=== PATIENT | female | born 1995 | race Two or more races ===

== ENCOUNTER → 2017-02-18 | Outpatient (REF) | payer OTHER | LOC: M SFHCPLAZ 16:53 | PROVIDERS: ATTEND Family Medicine | DX: Z12.4 Encounter for screening for malignant neoplasm of cervix (principal) ==

== ENCOUNTER → 2017-06-17 | Outpatient (CLI) | payer OTHER ==
--- NOTE | 2017-06-17 20:14 | REP ---
LEFT BREAST ULTRASOUND: 06/17/2017. Clinical history: Left breast palpable lump noon position. She states for about a year. There is a positive family history for paternal grandmother with breast carcinoma. She states it is increased in size. Findings: Heterogeneous dense echogenic parenchyma noted in the region at the noon position of the breast. However, at the area of palpable finding, there is a hypoechoic lobulated lesion with irregular margins 2.8 x 2.2 x 1.8 cm. It shows some through transmission but not characteristic appearance for fibroadenoma. There is no definite color flow within it. Nearby in a dense fibrous band is another hypoechoic area, but less hypoechoic and better defined and without lobulated margins. It measures 13 x 10 x 9 mm. Impression: 1. BIRADS/ACR category 4 suspicious left breast ultrasound. There is a solid appearing mass with hypoechoic characteristics. It does not have typical findings associated with fibroadenoma. An atypical fibroadenoma, hematoma or other mass are the differential considerations. The fact that it is enlarging, has irregular lobulated contours and poor through transmission warrants consideration for percutaneous ultrasound guided needle biopsy. The other finding in the nearby soft tissues is likely normal parenchyma. Signed by Mani Beasley MD 06/17/2017 10:33 P
== END ==
LOC: M RAD 11:25
PROVIDERS: ATTEND Family Medicine
DX: N63 Unspecified lump in breast (principal)

== ENCOUNTER → 2017-10-17 | Outpatient (CLI) | payer OTHER ==
--- NOTE | 2017-10-17 19:34 | REP ---
Left breast ultrasound: 10/17/2017: Comparison: 06/17/2017. Clinical history: Unilateral lump in left breast. Visualized sonographically in June. For follow-up. Findings sonographic evaluation again shows heterogeneous dense echogenic breast parenchyma. Again noted in the retroareolar zone noon position is a 2.5 x 2.8 x 1.8 cm lobulated appearing hypoechoic mass. This does not have typical features of a fibroadenoma corresponds to the palpable finding. The measurements are similar in length and height. The width is 3 mm greater. There is some through transmission but it is not strong. Does not have cystic characteristics. I do not see any definite color flow within it. The previous study showed a nearby linear hypoechoic fibrous band of tissue which is not visible on today's study. There are no dilated ducts, cyst, or masses or architectural distortion. Impression: 1. BIRADS ACR category 4 suspicious left breast ultrasound biopsy should be considered. A solid appearing mass with hypoechoic lobulated appearance, two of the three measurements are the same, one is larger than on the previous study. This is not typical for fibroadenoma but the appearance could be an atypical fibroadenoma. I doubt hematoma as there is no significant decrease in size. Other masses are unusual in this age group, but because of its atypical appearance, ultrasound-guided needle biopsy is still recommended. BI-RADS/ACR category 4 mammogram. Suspicious abnormality - biopsy should be considered. Usually requires biopsy. Signed by Mani Beasley MD 10/18/2017 08:22 P
== END ==
LOC: M RAD 15:11
PROVIDERS: ATTEND Surgery
DX: N63.0 Unspecified lump in unspecified breast (principal)

== ENCOUNTER → 2017-11-09 | Outpatient (CLI) | payer OTHER ==
[~2017-11-09] MED LIST: LIDOCAINE 1% MDV 20ML VIAL As Ordered ONE
--- NOTE | 2017-11-10 09:33 | REP ---
LEFT BREAST BIOPSY WITH ULTRASOUND GUIDANCE: The procedure was performed by CLARISSA Conroy under the direct supervision of Dr. Bates. The procedure along with its risks, benefits and complications were discussed with the patient prior to the examination. Informed consent was obtained both verbally and written. The patient was identified in the ultrasound suite and placed in the supine position. The left breast was interrogated with ultrasound. An appropriate site was chosen for needle entry and this area was marked, prepped and draped in the usual sterile fashion. A procedural time-out was performed to insure that the correct patient site and procedure were being performed. Local infiltrative anesthesia was achieved using 20 mL of 1% Xylocaine. A small skin incision was made and a 13-gauge Mammotome biopsy device was advanced to the area of interest. A total of 6 core biopsy specimens were obtained with ultrasonographic imaging to document each pass. The specimens were placed in formalin and sent to pathology for further analysis. Results pending. Following the procedure, the wound was cleansed and compressed. Steri-Stripes and sterile gauze were applied and the patient was given postbiopsy instructions. The patient tolerated the procedure well and had no immediate complications. IMPRESSION: Uncomplicated ultrasound-guided biopsy of the left breast. Pathology pending. Reviewed by CLARISSA Duarte 11/10/2017 11:11 AEdited and Signed by Isreal Bates MD 11/10/2017 02:30 P
== END ==
LOC: M RADPRO 08:50
PROVIDERS: ATTEND Surgery
DX: D24.2 Benign neoplasm of left breast (principal)

== ENCOUNTER → 2018-03-03 | Outpatient (REF) | payer OTHER | LOC: M SFHCPLAZ 07:34 | DX: Z12.4 Encounter for screening for malignant neoplasm of cervix (principal); R87.612 Low grade squamous intraepithelial lesion on cytologic smear of cervix (LGSIL) | CPT/HCPCS: 88142 ==

== ENCOUNTER → 2018-08-30 | Outpatient (CLI) | payer OTHER ==
[2018-08-30 17:35] LABS: ANION GAP 7 MEQ/L (8-16); BLOOD UREA NITROGEN 11 MG/DL (7-18); CALCIUM LEVEL 8.7 MG/DL (8.5-10.1); CARBON DIOXIDE LEVEL 26 MEQ/L (21-32); CHLORIDE LEVEL 108 MEQ/L (98-107); CREATININE FOR GFR 0.65 MG/DL (0.55-1.30); FREE T4 0.84 NG/DL (0.76-1.46); GLOMERULAR FILTRATION RATE > 60.0 (>60); GLUCOSE, FASTING 102 MG/DL (70-100); POTASSIUM SERUM 3.9 MEQ/L (3.5-5.1); SODIUM LEVEL 141 MEQ/L (136-145)
[2018-08-30 17:36] LABS: HEMATOCRIT 37.4 % (36.0-47.0); HEMOGLOBIN 12.6 g/dl (12.0-15.5); MEAN CORPUSCULAR HEMOGLOBIN 29.2 pg (27.0-33.0); MEAN CORPUSCULAR HGB CONC 33.7 g/dl (32.0-36.5); MEAN CORPUSCULAR VOLUME 86.6 fl (80.0-96.0); PLATELET COUNT, AUTOMATED 252 10^3/uL (150-450); RED BLOOD COUNT 4.32 10^6/uL (4.00-5.40); RED CELL DISTRIBUTION WIDTH 11.9 % (11.5-14.5); WHITE BLOOD COUNT 6.1 10^3/uL (4.0-10.0)
[2018-08-30 18:27] LABS: ESTIMATED AVERAGE GLUCOSE 111 MG/DL (60-110); HEMOGLOBIN A1c 5.5 %
== END ==
LOC: M LAB 16:46
DX: L65.8 Other specified nonscarring hair loss (principal)
CPT/HCPCS: 84443

== ENCOUNTER → 2018-12-21 | Outpatient (CLI) | payer OTHER ==
--- NOTE | 2018-12-21 18:11 | REP ---
Focused left breast sonography: History: Follow-up ultrasound of the lump in the left breast. The patient is status post ultrasound-guided needle biopsy October 17, 2017 histologic result was fibroadenoma for this lesion at 12 o'clock. Comparison sonography June 17, 2017. Findings: Sonographic scanning of the lump and 12 o'clock again demonstrates a 2.6 x 2.6 x 2.0 cm macrolobulated hypoechoic mass felt to be unchanged from the as sonographic study done June 17, 2017. This was a lesion that was biopsied and called fibroadenoma. Impression: Stable BIRADS category II benign left breast sonographic findings. Electronically Signed by Isreal Bates MD 12/21/2018 10:29 P
== END ==
LOC: M RAD 14:56
PROVIDERS: ATTEND Surgery
DX: N63.0 Unspecified lump in unspecified breast (principal)

== ENCOUNTER → 2019-02-22 | Outpatient (REF) | payer OTHER ==
[2019-02-24 14:43] LABS: HPV HYBRID CAPTURE II Negative (Negative)
== END ==
LOC: M SFHCPLAZ 10:08
PROVIDERS: ATTEND Family Medicine
DX: Z12.4 Encounter for screening for malignant neoplasm of cervix (principal); Z87.898 Personal history of other specified conditions; R87.612 Low grade squamous intraepithelial lesion on cytologic smear of cervix (LGSIL)

== ENCOUNTER → 2019-03-26 | Outpatient (REF) | payer OTHER ==
[~2019-03-26] MED LIST changes: +CETI-36 PO; -LIDOCAINE 1% MDV 20ML VIAL As Ordered ONE; +LOW-1TAB2 PO; +PROAAER10 INH
== END ==
LOC: M SFHCWAGY 15:27
PROVIDERS: ATTEND Nurse Practitioner Women's Health
DX: R87.612 Low grade squamous intraepithelial lesion on cytologic smear of cervix (LGSIL) (principal)

== ENCOUNTER 2019-04-03 10:56 | Day surgery (SDC) | payer OTHER ==
[~2019-04-03] VITALS: Ht 160 cm; Wt 66.6 kg
[~2019-04-03 10:56] MED LIST changes: +LR 1,000 ML IV ONE; +MIDAZOLAM INJ 2 MG/2 ML VIAL (J2250) As Ordered ONE; +fentaNYL 250 MCG/5 ML INJECTION (J3010) As Ordered ONE
[2019-04-03 11:22] LABS: URINE PREG TEST NEGATIVE (NEGATIVE)
[2019-04-03] MEDS ORDERED: BUPIVACAINE/EPIN 0.25% 30 ML VIAL As Ordered ONE (12:40)
[2019-04-03] MEDS ORDERED: dexameTHASONE 4 MG/ML 1ML VIAL (J1100) As Ordered ONE (12:52)
[2019-04-03] MEDS ORDERED: ONDANSETRON 4MG/2ML VIAL (J2405) As Ordered ONE (12:53)
[2019-04-03] MEDS ORDERED: PROPOFOL 200 MG/20 ML VIAL As Ordered ONE (12:54)
[2019-04-03] MEDS ORDERED: ACETAMINOPHEN 1000MG 100ML IV BTL (OFIRMEV) (J0131 PER 10MG) As Ordered ONE (12:55)
[2019-04-03] MEDS ORDERED: LIDOCAINE 2% INJ 100 MG/5 ML SDV (FOR ANES.) As Ordered ONE (12:57)
[2019-04-03] MEDS ORDERED: KETOROLAC 60 MG/2 ML VIAL (J1885) As Ordered ONE (12:59)
--- NOTE | 2019-04-03 13:54 | RO ---
DATE OF PROCEDURE: 04/03/2019 PREOPERATIVE DIAGNOSIS: Left breast mass. POSTOPERATIVE DIAGNOSIS: Left breast mass. PROCEDURE: Left breast biopsy (lumpectomy). SURGEON: Dr. Иван Pham ASSOCIATE PROFESSOR OF CHEMISTRY: ANESTHESIA: General. ESTIMATED BLOOD LOSS: Minimal. FLUIDS: Crystalloid. BRIEF PROCEDURE SUMMARY: The patient was brought to the operating room and was given general anesthesia. After adequate anesthesia and preoperative identification of the lesion was performed, the patient was prepped and draped in the usual sterile fashion. Next, a curvilinear line above the nipple-areolar complex area was made with a skin knife. Electrocautery was used cut through dermis and underlying subcutaneous tissue through a palpable mass in the breast. It was a relatively deep lesion. Once further dissection was performed through the skin and subcutaneous tissue, it was actually in the deep breast tissue that this was, and it reached all the way down to the pectoralis major muscle. In any case, this was removed in its entirety using a combination of blunt and sharp dissection as well as electrocautery and sent to pathology. The breast tissue was loosely approximated in this area with #3-0 Vicryl, #3-0 Vicryl was used to approximate dermis and #4-0 Vicryl subcuticular was used to approximate the skin. Steri-Strips and a dry sterile dressing was applied. Local Marcaine with epinephrine was infiltrated into the skin and subcutaneous tissue. The patient was awakened, extubated and brought to the recovery room awake, alert and hemodynamically stable. Sponge and needle counts were correct times two.
[2019-04-03] MEDS ORDERED: NORCO, ANEXSIA 5/325MG TABLET (HYDROcodone/ACETAMINOPHEN) PO PRN (14:00)
[2019-04-03] MEDS ORDERED: METOCLOPRAMIDE INJ 10MG/2ML VIAL (J2765) IV PRN (14:00)
[2019-04-03] MEDS ORDERED: ONDANSETRON 4MG/2ML VIAL (J2405) IV PRN (14:00)
[2019-04-03] MEDS ORDERED: PERCOCET 5MG/325MG TAB PO PRN (14:00)
[2019-04-03] MEDS ORDERED: fentaNYL 100 MCG/2 ML INJECTION (J3010) IV PRN (14:00)
[2019-04-03] MEDS ORDERED: LR 1,000 ML IV SCH ×2 (14:00)
[2019-04-03 15:10] VITALS: BP 141/86
[2019-04-03] MEDS ORDERED: KETOROLAC 30 MG/ML VIAL (J1885) IV SCH (20:00)
== END 2019-04-03 15:19 | disposition home or self-care (01) ==
LOC: M SDC 10:56
PROVIDERS: ATTEND Surgery
DX: D24.2 Benign neoplasm of left breast (principal); Z79.51 Long term (current) use of inhaled steroids; Z79.899 Other long term (current) drug therapy; M46.1 Sacroiliitis, not elsewhere classified
CPT/HCPCS: 19120; 84703; 88305; J0131; J1100; J1885; J2250; J2405; J3010

== ENCOUNTER → 2020-03-17 | Outpatient (REF) | payer OTHER ==
[~2020-03-17] MED LIST changes: -LR 1,000 ML IV ONE; -MIDAZOLAM INJ 2 MG/2 ML VIAL (J2250) As Ordered ONE; -fentaNYL 250 MCG/5 ML INJECTION (J3010) As Ordered ONE
== END ==
LOC: M SFHCPLAZ 13:32
PROVIDERS: ATTEND Family Medicine
DX: Z87.42 Personal history of other diseases of the female genital tract (principal); N87.0 Mild cervical dysplasia

== ENCOUNTER → 2020-04-15 | Outpatient (CLI) | payer OTHER ==
--- NOTE | 2020-04-15 18:51 | REP ---
Clinical: Pelvic pain . Technique: Transabdominal pelvic ultrasound followed with color evaluation. Findings: Bladder is unremarkable and measures 9.9 x 5.0 x 9.5 cm . Normal anteverted uterus measures 8.3 x 2.9 x 3.7 cm . The endometrial complex measures 2.2 mm thickness. No discrete uterine or endometrial abnormalities are appreciated. Bilateral ovaries are normal in appearance and vascularity without evidence for torsion. Right ovary measures 3.2 x 1.5 x 2.6 cm ; Left ovary measures 3.5 x 2.0 x 1.6 cm including small follicle. No pelvic fluid or adnexal mass lesion . Impression: 1. Normal pelvic ultrasound
== END ==
LOC: M WHC 15:24
PROVIDERS: ATTEND Nurse Practitioner Women's Health
DX: R10.2 Pelvic and perineal pain (principal)

== ENCOUNTER → 2021-03-19 | Outpatient (REF) | payer BC, OTHER | LOC: M SFHCPLAZ 17:09 | PROVIDERS: ATTEND Family Medicine | DX: Z12.4 Encounter for screening for malignant neoplasm of cervix (principal) ==

== ENCOUNTER → 2021-07-29 | Outpatient (CLI) | payer BC ==
[2021-07-29 09:43] LABS: FREE T4 0.76 NG/DL (0.76-1.46)
[2021-07-29 09:44] LABS: HCG, SERUM QUALITATIVE NEGATIVE (NEGATIVE); PROLACTIN 7.6 NG/ML
[2021-07-29 09:46] LABS: ESTRADIOL 60.5 PG/ML; FOLLICLE STIMULATING HORMONE 8.3 mIU/mL; LUTEINIZING HORMONE 18.6 mIU/mL
[2021-07-30 17:07] LABS: TESTOSTERONE FREE (DIRECT) 6.5 pg/mL (0.0-4.2)
== END ==
LOC: M LAB 08:32
PROVIDERS: ATTEND Family Medicine
DX: N91.4 Secondary oligomenorrhea (principal)

== ENCOUNTER → 2021-09-11 | Outpatient (CLI) | payer BC ==
[2021-09-11 14:42] LABS: HCG, SERUM QUALITATIVE POSITIVE (NEGATIVE)
== END ==
LOC: M LAB 12:35
PROVIDERS: ATTEND Family Medicine
DX: N91.2 Amenorrhea, unspecified (principal)

== ENCOUNTER → 2021-10-01 | Outpatient (CLI) | payer BC ==
[2021-10-01 17:08] LABS: BASO # 0.1 10^3/uL (0.0-0.2); BASO % 0.4 % (0.0-1.0); EOS # 0.1 10^3/uL (0.0-0.5); EOS % 0.3 % (0.0-3.0); HEMATOCRIT 39.7 % (36.0-47.0); HEMOGLOBIN 13.6 g/dl (12.0-15.5); LYMPH # 2.6 10^3/uL (1.5-5.0); LYMPH % 17.1 % (24.0-44.0); MEAN CORPUSCULAR HEMOGLOBIN 30.6 pg (27.0-33.0); MEAN CORPUSCULAR HGB CONC 34.3 g/dl (32.0-36.5); MEAN CORPUSCULAR VOLUME 89.4 fl (80.0-96.0); MONO % 6.8 % (2.0-8.0); NEUTROPHILS % 72.9 % (36.0-66.0); PLATELET COUNT, AUTOMATED 341 10^3/uL (150-450); RED BLOOD COUNT 4.44 10^6/uL (4.00-5.40); WHITE BLOOD COUNT 15.1 10^3/uL (4.0-10.0)
[2021-10-01 17:21] LABS: ALT/SGPT 23 U/L (12-78); BILIRUBIN,TOTAL 0.2 MG/DL (0.2-1.0); CREATININE FOR GFR 0.58 MG/DL (0.55-1.30); GLOMERULAR FILTRATION RATE > 60.0 (>60); LDH LACTATE DEHYDROGENASE 152 U/L (84-246); URIC ACID 3.4 MG/DL (2.6-6.0)
[2021-10-01 17:23] LABS: TOTAL PROTEIN,RANDOM URINE 9.1 MG/DL (0.0-12.0)
[2021-10-01 18:11] LABS: HEPATITIS C VIRUS ABY INDEX 0.1 INDEX (<0.8); HIV 1&2 SCREEN CENTAUR NEGATIVE (NEGATIVE)
[2021-10-01 19:19] LABS: GC DNA AMPLIFICATION NEGATIVE (NEGATIVE)
== END ==
LOC: M PLALAB 15:46
PROVIDERS: ATTEND Advanced Practice Midwife
DX: Z36.89 Encounter for other specified antenatal screening (principal); Z3A.08 8 weeks gestation of pregnancy

== ENCOUNTER → 2021-12-24 | Outpatient (CLI) | payer BC | LOC: M WHC 11:45 | PROVIDERS: ATTEND Obstetrics & Gynecology | DX: O10.911 Unspecified pre-existing hypertension complicating pregnancy, first trimester (principal) ==

== ENCOUNTER → 2022-02-12 | Outpatient (CLI) | payer BC ==
[2022-02-12 11:00] LABS: HEMATOCRIT 31.5 % (36.0-47.0); HEMOGLOBIN 10.8 g/dl (12.0-15.5); MEAN CORPUSCULAR HEMOGLOBIN 30.2 pg (27.0-33.0); MEAN CORPUSCULAR HGB CONC 34.3 g/dl (32.0-36.5); PLATELET COUNT, AUTOMATED 233 10^3/uL (150-450); RED BLOOD COUNT 3.58 10^6/uL (4.00-5.40)
== END ==
LOC: M PLALAB 07:54
PROVIDERS: ATTEND Advanced Practice Midwife
DX: O10.012 Pre-existing essential hypertension complicating pregnancy, second trimester (principal); Z3A.00 Weeks of gestation of pregnancy not specified

== ENCOUNTER → 2022-02-25 | Outpatient (CLI) | payer BC | LOC: M WHC 08:22 | PROVIDERS: ATTEND Obstetrics & Gynecology | DX: N63.20 Unspecified lump in the left breast, unspecified quadrant (principal) ==

== ENCOUNTER → 2022-03-18 | Outpatient (CLI) | payer BC | LOC: M WHC 11:24 | PROVIDERS: ATTEND Advanced Practice Midwife | DX: O10.013 Pre-existing essential hypertension complicating pregnancy, third trimester (principal) ==

== ENCOUNTER → 2022-04-06 | Outpatient (REF) | payer BC | LOC: M PLALAB 08:09 | PROVIDERS: ATTEND Specialist | DX: Z34.03 Encounter for supervision of normal first pregnancy, third trimester (principal) ==

== ENCOUNTER → 2022-04-14 | Outpatient (CLI) | payer BC | LOC: M WHC 09:54 | PROVIDERS: ATTEND Advanced Practice Midwife | DX: O10.013 Pre-existing essential hypertension complicating pregnancy, third trimester (principal) ==

== ENCOUNTER 2022-04-26 11:50 | Inpatient (IN) | payer BC ==
[~2022-04-26] VITALS: Ht 160 cm; Wt 87.9 kg
[2022-04-26] VITALS (16 sets, daily range): BP systolic 134–186; BP diastolic 75–111
[2022-04-26] MEDS ORDERED: CARBOPROST TROMETHAMINE 250 MCG/ML AMP IM PRN (12:25)
[2022-04-26] MEDS ORDERED: OXYTOCIN DRIP 30 UNITS in IV 1 EA IV PRN (12:25)
[2022-04-26] MEDS ORDERED: TRANEXAMIC ACID INJection 1,000 MG in NS 100 ML IV PRN (12:25)
[2022-04-26] MEDS ORDERED: LIDOCAINE 1% MDV 20ML VIAL INFIL PRN (12:25)
[2022-04-26] MEDS ORDERED: RA A500C4 PO (12:36)
[2022-04-26] MEDS ORDERED: ECOT81TA5 PO (12:36)
[2022-04-26] MEDS ORDERED: LABE100T71 PO (12:36)
[2022-04-26] MEDS ORDERED: PRENTAB9 PO (12:36)
[2022-04-26] MEDS ORDERED: HOME MED LIST COMPLETE! XX SCH (12:40)
[2022-04-26 13:32] LABS: HEMATOCRIT 31.1 % (36.0-47.0); HEMOGLOBIN 10.2 g/dl (12.0-15.5); MEAN CORPUSCULAR HEMOGLOBIN 27.3 pg (27.0-33.0); MEAN CORPUSCULAR HGB CONC 32.8 g/dl (32.0-36.5); MEAN CORPUSCULAR VOLUME 83.4 fl (80.0-96.0); PLATELET COUNT, AUTOMATED 179 10^3/uL (150-450); RED BLOOD COUNT 3.73 10^6/uL (4.00-5.40); WHITE BLOOD COUNT 7.5 10^3/uL (4.0-10.0)
[2022-04-26 13:53] LABS: ALT/SGPT 17 U/L (12-78); BILIRUBIN,TOTAL 0.4 MG/DL (0.2-1.0); CREATININE FOR GFR 0.58 MG/DL (0.55-1.30); GLOMERULAR FILTRATION RATE > 60.0 (>60); LDH LACTATE DEHYDROGENASE 185 U/L (84-246); URIC ACID 5.8 MG/DL (2.6-6.0)
[2022-04-26] MEDS: miSOPROStol 50MCG 1/2 TABLET PO SCH ×2 (14:04→18:13)
[2022-04-26 16:13] LABS: TOTAL PROTEIN,RANDOM URINE 27.1 MG/DL (0.0-12.0)
[2022-04-26] MEDS ORDERED: LABETALOL 100MG TAB PO SCH (21:00)
[2022-04-26] MEDS ORDERED: LABETALOL 100MG TAB PO STA (21:11)
[2022-04-26] MEDS ORDERED: OXYTOCIN DRIP 30 UNITS in IV 1 EA IV SCH (23:10)
[2022-04-27] VITALS (83 sets, daily range): BP systolic 122–195; BP diastolic 61–111
[2022-04-27] MEDS: LR 1,000 ML IV SCH ×4 (00:37→18:02)
[2022-04-27] MEDS ORDERED: PROMETHAZINE 25MG/ML 1ML VIAL IV ONE (02:45)
[2022-04-27] MEDS ORDERED: BUTORPHANOL 2 MG/ML INJ (J0595) IV ONE (03:00)
[2022-04-27] MEDS ORDERED: FENTANYL 2MCG/ML ROPIVACAINE 0.2% IN 0.9% NACL 100ML IVBAG As Ordered ONE (07:28)
[2022-04-27] MEDS ORDERED: ePHEDrine SULFATE 25 MG/5 ML(5MG/ML) SYRINGE IVP PRN (07:40)
[2022-04-27] MEDS ORDERED: ONDANSETRON 4MG 2ML VIAL IV PRN ×4 (07:40→22:10)
[2022-04-27] MEDS ORDERED: LR 500 ML IV PRN (07:40)
[2022-04-27] MEDS ORDERED: diphenhydrAMINE 50MG/ML VIAL (J1200) IV PRN ×2 (07:40→21:45)
[2022-04-27] MEDS ORDERED: NALOXONE INJ 0.4MG/1ML VIAL (J2310 PER 1MG) IV PRN ×3 (07:40→21:45)
[2022-04-27] MEDS ORDERED: EPIDURAL/PCA KEYS XX PRN (07:40)
[2022-04-27] MEDS: FENTANYL/ROPIVACAINE/NACL BAG 100 ML EPIDURAL SCH ×2 (08:18→17:38)
[2022-04-27] MEDS ORDERED: LABETALOL 200 MG TAB PO SCH (09:00)
[2022-04-27] MEDS ORDERED: CALCIUM CARBONATE 500 MG CHEW U/D PO ONE (16:30)
[2022-04-27] MEDS ORDERED: ceFAZolin SOD 2 GM in IV 1 EA IV ONE (19:45)
[2022-04-27] MEDS ORDERED: BICITRA 30ML SOLN UDC PO ONE (19:45)
[2022-04-27] MEDS ORDERED: AZITHROMYCIN INJ 500 MG, VIAL MATE ADAPTER 1 EACH in NS 250 ML IV ONE (19:45)
[2022-04-27] MEDS ORDERED: OXYTOCIN INJ 10 UNITS/ML VIAL (J2590) As Ordered ONE ×2 (19:50→21:32)
[2022-04-27] MEDS ORDERED: KETOROLAC 60MG 2ML VIAL As Ordered ONE (19:50)
[2022-04-27] MEDS ORDERED: LIDOCAINE 2% W/EPINEPHRINE 20ML VIAL **PRES FREE As Ordered ONE (19:50)
[2022-04-27] MEDS ORDERED: dexameTHASONE 4 MG/ML 1ML VIAL (J1100 PER 1MG) As Ordered ONE (19:50)
[2022-04-27] MEDS ORDERED: ONDANSETRON 4MG 2ML VIAL As Ordered ONE (19:50)
[2022-04-27 20:07] LABS: HEMATOCRIT 32.8 % (36.0-47.0); HEMOGLOBIN 10.9 g/dl (12.0-15.5); MEAN CORPUSCULAR HEMOGLOBIN 27.5 pg (27.0-33.0); MEAN CORPUSCULAR HGB CONC 33.2 g/dl (32.0-36.5); MEAN CORPUSCULAR VOLUME 82.8 fl (80.0-96.0); PLATELET COUNT, AUTOMATED 159 10^3/uL (150-450); RED BLOOD COUNT 3.96 10^6/uL (4.00-5.40); WHITE BLOOD COUNT 14.1 10^3/uL (4.0-10.0)
[2022-04-27 20:27] LABS: BLOOD UREA NITROGEN 3 MG/DL (7-18); CALCIUM LEVEL 8.9 MG/DL (8.5-10.1); CARBON DIOXIDE LEVEL 20 MEQ/L (21-32); CHLORIDE LEVEL 109 MEQ/L (98-107); CREATININE FOR GFR 0.56 MG/DL (0.55-1.30); GLOMERULAR FILTRATION RATE > 60.0 (>60); GLUCOSE, FASTING 76 MG/DL (70-100); POTASSIUM SERUM 3.6 MEQ/L (3.5-5.1); SODIUM LEVEL 140 MEQ/L (136-145)
[2022-04-27] MEDS ORDERED: MORPHINE PRES-FREE INJ 10 MG/10 ML VIAL As Ordered ONE (20:45)
[2022-04-27] MEDS ORDERED: BUPIVACAINE/EPIN 0.25% 30 ML VIAL As Ordered ONE (21:14)
[2022-04-27] MEDS ORDERED: METOCLOPRAMIDE INJ 10MG/2ML VIAL (J2765 PER 1) IV PRN ×2 (21:45→22:10)
[2022-04-27] MEDS ORDERED: SLF 3 ML SYR IV SCH (21:45)
[2022-04-27] MEDS ORDERED: MEPERIDINE INJ 25 MG/ML VIAL (J2175) IV PRN (21:45)
[2022-04-27] MEDS ORDERED: fentaNYL 100 MCG/2 ML INJECTION IV PRN (21:45)
[2022-04-27] MEDS ORDERED: LR 1,000 ML IV SCH (21:45)
[2022-04-27] MEDS ORDERED: **NOTE PATIENT COMMENT** MISC XX SCH (21:45)
[2022-04-27] MEDS ORDERED: OXYTOCIN DRIP 30 UNITS in IV 1 EA IV SCH (22:10)
[2022-04-27] MEDS ORDERED: DOCUSATE SODIUM 100MG CAPSULE PO PRN (22:10)
[2022-04-27] MEDS ORDERED: oxyCODONE 5MG TAB PO PRN ×2 (22:10)
[2022-04-27] MEDS ORDERED: RHOGAM 300 MCG (1500 IU) INJ (J2790) IM SCH (22:10)
[2022-04-27] MEDS ORDERED: SIMETHICONE 80MG CHEW TAB PO PRN (22:10)
[2022-04-27 22:43] LABS: HEMATOCRIT 31.1 % (36.0-47.0); HEMOGLOBIN 10.2 g/dl (12.0-15.5); MEAN CORPUSCULAR HEMOGLOBIN 26.9 pg (27.0-33.0); MEAN CORPUSCULAR HGB CONC 32.8 g/dl (32.0-36.5); MEAN CORPUSCULAR VOLUME 82.1 fl (80.0-96.0); PLATELET COUNT, AUTOMATED 174 10^3/uL (150-450); RED BLOOD COUNT 3.79 10^6/uL (4.00-5.40); WHITE BLOOD COUNT 19.3 10^3/uL (4.0-10.0)
[2022-04-27] MEDS: ACETAMINOPHEN 500 MG TAB PO SCH (23:23)
[2022-04-27] MEDS: LABETALOL 200 MG TAB PO SCH (23:24)
[2022-04-28] VITALS (10 sets, daily range): BP systolic 114–144; BP diastolic 58–81
[2022-04-28] MEDS: LR 1,000 ML IV SCH ×2 (01:00→07:35)
[2022-04-28] MEDS: ACETAMINOPHEN 500 MG TAB PO SCH ×4 (05:05→23:08)
[2022-04-28 06:54] LABS: HEMATOCRIT 26.8 % (36.0-47.0); MEAN CORPUSCULAR HEMOGLOBIN 27.8 pg (27.0-33.0); MEAN CORPUSCULAR HGB CONC 33.6 g/dl (32.0-36.5); MEAN CORPUSCULAR VOLUME 82.7 fl (80.0-96.0); PLATELET COUNT, AUTOMATED 164 10^3/uL (150-450); RED BLOOD COUNT 3.24 10^6/uL (4.00-5.40); WHITE BLOOD COUNT 14.6 10^3/uL (4.0-10.0)
[2022-04-28] MEDS: PRENATAL VITAMINS CHEWABLE TABLET PO SCH (07:34)
[2022-04-28] MEDS: LABETALOL 200 MG TAB PO SCH ×2 (07:35→21:11)
[2022-04-29 02:19] VITALS: BP 146/90
[2022-04-29] MEDS: ACETAMINOPHEN 500 MG TAB PO SCH ×4 (05:26→23:03)
[2022-04-29 05:38] VITALS: BP_SYST 138; BP_SYST 94; BP_DIAS 59; BP_DIAS 82
[2022-04-29] MEDS ORDERED: MEASLES,MUMPS,RUBELLA VACCINE INJ (MMR-II) (90707) SC.IMMUN ONE (09:00)
[2022-04-29] MEDS: PRENATAL VITAMINS CHEWABLE TABLET PO SCH (09:48)
[2022-04-29] MEDS: LABETALOL 200 MG TAB PO SCH ×2 (09:49→21:22)
[2022-04-29 10:05] VITALS: BP 142/82
[2022-04-29 14:05] VITALS: BP 140/80
[2022-04-29 17:55] VITALS: BP 142/74
[2022-04-29 22:15] VITALS: BP 146/98
[2022-04-30 02:00] VITALS: BP 144/90
[2022-04-30] MEDS: ACETAMINOPHEN 500 MG TAB PO SCH ×2 (05:17→11:41)
[2022-04-30 06:20] VITALS: BP 152/92
[2022-04-30] MEDS ORDERED: LABETALOL 100MG TAB PO SCH (09:00)
[2022-04-30] MEDS ORDERED: MEASLES,MUMPS,RUBELLA VACCINE INJ (MMR-II) (90707) SC.IMMUN ONE (09:00)
[2022-04-30] MEDS: PRENATAL VITAMINS CHEWABLE TABLET PO SCH (09:18)
[2022-04-30 09:19] VITALS: BP 148/94
[2022-04-30 10:00] VITALS: BP 158/88
[2022-04-30] MEDS ORDERED: OXYC1TAB23 PO (11:20)
[2022-04-30] MEDS ORDERED: LABE300T55 PO (11:22)
[2022-04-30] MEDS ORDERED: IBUP-1022 PO (11:24)
== END 2022-04-30 13:50 | disposition home or self-care (01) | DRG 540 ==
LOC: M LDI 11:50 → M OBS 04-28 00:02 → M PED 04-30 13:39
PROVIDERS: ADMIT Advanced Practice Midwife; ATTEND Obstetrics & Gynecology
PROC: 3E0P7GC Introduction of Other Therapeutic Substance into Female Reproductive, Via Natural or Artificial Opening (ICD-10-PCS; 2022-04-26)
PROC: 10D00Z1 Extraction of Products of Conception, Low, Open Approach (ICD-10-PCS; principal; 2022-04-27 21:14)
DX: O11.4 Pre-existing hypertension with pre-eclampsia, complicating childbirth (principal); O64.0XX0 Obstructed labor due to incomplete rotation of fetal head, not applicable or unspecified; Z3A.38 38 weeks gestation of pregnancy; Z79.899 Other long term (current) drug therapy; Z79.82 Long term (current) use of aspirin; O62.0 Primary inadequate contractions; Z37.0 Single live birth; O10.02 Pre-existing essential hypertension complicating childbirth

== ENCOUNTER → 2022-08-12 | Outpatient (REF) | payer BC ==
[~2022-08-12] MED LIST changes: +ECOT81TA5 PO; +IBUP-1022 PO; +LABE100T71 PO; +LABE300T55 PO; +OXYC1TAB23 PO; +PRENTAB9 PO; +RA A500C4 PO
== END ==
LOC: M SFHCWAGY 12:54
PROVIDERS: ATTEND Obstetrics & Gynecology
DX: Z01.419 Encounter for gynecological examination (general) (routine) without abnormal findings (principal); Z12.4 Encounter for screening for malignant neoplasm of cervix

== ENCOUNTER → 2023-08-25 | Outpatient (CLI) | payer OTHER ==
[2023-08-25 11:18] LABS: HEMATOCRIT 36.1 % (36.0-47.0); HEMOGLOBIN 12.6 g/dl (12.0-15.5); MEAN CORPUSCULAR HEMOGLOBIN 30.9 pg (27.0-33.0); MEAN CORPUSCULAR HGB CONC 34.9 g/dl (32.0-36.5); MEAN CORPUSCULAR VOLUME 88.5 fl (80.0-96.0); PLATELET COUNT, AUTOMATED 308 10^3/uL (150-450); RED BLOOD COUNT 4.08 10^6/uL (4.00-5.40); WHITE BLOOD COUNT 10.6 10^3/uL (4.0-10.0)
[2023-08-25 11:37] LABS: TOTAL PROTEIN,RANDOM URINE 16.4 MG/DL (0.0-14.0)
[2023-08-25 11:40] LABS: URIC ACID 3.9 MG/DL (3.1-7.8)
[2023-08-25 11:42] LABS: ALT/SGPT 14 U/L (7.0-40); AST/SGOT 12 U/L (<34); BILIRUBIN,TOTAL 0.5 MG/DL (0.3-1.2); CREATININE,RANDOM URINE 214.6 MG/DL; GLOMERULAR FILTRATION RATE > 60.0 (>60); LDH LACTATE DEHYDROGENASE 161 U/L (120-246)
[2023-08-25 12:09] LABS: HIV 1&2 SCREEN NEGATIVE (NEGATIVE)
[2023-08-25 12:17] LABS: HEPATITIS C VIRUS ABY INDEX 0.09 INDEX (<0.8)
[2023-08-25 13:51] LABS: GC DNA AMPLIFICATION NEGATIVE (NEGATIVE)
== END ==
LOC: M PLALAB 08:39
PROVIDERS: ATTEND Advanced Practice Midwife
DX: O10.011 Pre-existing essential hypertension complicating pregnancy, first trimester (principal)

== ENCOUNTER → 2023-10-21 | Outpatient (CLI) | payer OTHER | LOC: M WHC 13:02 | PROVIDERS: ATTEND Obstetrics & Gynecology | DX: Z34.92 Encounter for supervision of normal pregnancy, unspecified, second trimester (principal) ==

== ENCOUNTER → 2023-12-02 | Outpatient (CLI) | payer OTHER | LOC: M WHC 14:23 | PROVIDERS: ATTEND Advanced Practice Midwife | DX: Z34.82 Encounter for supervision of other normal pregnancy, second trimester (principal) ==

== ENCOUNTER → 2023-12-23 | Outpatient (CLI) | payer OTHER ==
[2023-12-23 14:16] LABS: HEMATOCRIT 32.3 % (36.0-47.0); HEMOGLOBIN 10.5 g/dl (12.0-15.5); MEAN CORPUSCULAR HEMOGLOBIN 28.4 pg (27.0-33.0); MEAN CORPUSCULAR HGB CONC 32.5 g/dl (32.0-36.5); MEAN CORPUSCULAR VOLUME 87.3 fl (80.0-96.0); PLATELET COUNT, AUTOMATED 227 10^3/uL (150-450); WHITE BLOOD COUNT 9.4 10^3/uL (4.0-10.0)
== END ==
LOC: M PLALAB 09:17
PROVIDERS: ATTEND Advanced Practice Midwife
DX: Z34.82 Encounter for supervision of other normal pregnancy, second trimester (principal)

== ENCOUNTER → 2024-02-17 | Outpatient (CLI) | payer OTHER ==
[~2024-02-17] MED LIST changes: +LABE100T40 PO; -LABE100T71 PO; +LABE300T28 PO; -LABE300T55 PO
== END ==
LOC: M WHC 10:20
PROVIDERS: ATTEND Obstetrics & Gynecology
DX: O10.013 Pre-existing essential hypertension complicating pregnancy, third trimester (principal)

== ENCOUNTER → 2024-02-23 | Outpatient (REF) | payer OTHER | LOC: M SFHCWAGY 12:26 | PROVIDERS: ATTEND Specialist | DX: O10.919 Unspecified pre-existing hypertension complicating pregnancy, unspecified trimester (principal) ==

== ENCOUNTER 2024-03-12 05:16 | Inpatient (IN) | payer OTHER ==
[2024-03-12] VITALS (10 sets, daily range): BP systolic 116–136; BP diastolic 58–84; TEMP 96.9; O2SAT 96–98
[~2024-03-12] VITALS: Ht 160 cm; Wt 82.4 kg
[~2024-03-12 05:16] MED LIST changes: +ASPI81TA26 PO; +CETI10CH PO; +LABE100T6 PO
[2024-03-12] MEDS: ceFAZolin SOD 2 GM in IV 1 EA IV ONE (05:25)
[2024-03-12 06:14] LABS: HEMATOCRIT 36.8 % (36.0-47.0); HEMOGLOBIN 12.6 g/dl (12.0-15.5); MEAN CORPUSCULAR HEMOGLOBIN 30.2 pg (27.0-33.0); MEAN CORPUSCULAR HGB CONC 34.2 g/dl (32.0-36.5); MEAN CORPUSCULAR VOLUME 88.2 fl (80.0-96.0); PLATELET COUNT, AUTOMATED 162 10^3/uL (150-450); RED BLOOD COUNT 4.17 10^6/uL (4.00-5.40); WHITE BLOOD COUNT 8.2 10^3/uL (4.0-10.0)
[2024-03-12] MEDS: BICITRA 30ML SOLN UDC PO ONE (07:26)
[2024-03-12] MEDS: LACTATED RINGER'S 1000 ML IV STA (07:27)
[2024-03-12] MEDS: LR 1,000 ML IV SCH ×3 (07:28→13:25)
[2024-03-12 07:43] LABS: HEPATITIS C VIRUS ABY INDEX < 0.02 INDEX (<0.8)
[2024-03-12] MEDS ORDERED: OXYTOCIN INJ 10UNITS/ML 1ML VIAL As Ordered ONE (08:02)
[2024-03-12] MEDS ORDERED: fentaNYL 100 MCG/2 ML INJECTION As Ordered ONE (08:02)
[2024-03-12] MEDS ORDERED: MORPHINE PRES-FREE INJ 10 MG/10 ML VIAL As Ordered ONE (08:02)
[2024-03-12] MEDS ORDERED: KETOROLAC 60MG 2ML VIAL As Ordered ONE (08:46)
[2024-03-12] MEDS ORDERED: ONDANSETRON 4MG 2ML VIAL As Ordered ONE (08:46)
[2024-03-12] MEDS ORDERED: OXYTOCIN 30UNITS IN 0.9% NaCl 500ML IV BAG As Ordered ONE (08:51)
[2024-03-12] MEDS ORDERED: oxyCODONE 5MG TAB PO PRN ×3 (09:15→09:30)
[2024-03-12] MEDS ORDERED: SIMETHICONE 80MG CHEW TAB PO PRN (09:15)
[2024-03-12] MEDS ORDERED: RHO(D) IMMUNE GLOBULIN/MALTOSE 500MCG(2500IU)/2.2ML VIAL (WINRHO) IM SCH (09:15)
[2024-03-12] MEDS ORDERED: METOCLOPRAMIDE INJ 10MG/2ML VIAL IV PRN (09:15)
[2024-03-12] MEDS ORDERED: OXYC-517 PO (09:21)
[2024-03-12] MEDS ORDERED: COLA100C5 PO (09:21)
[2024-03-12] MEDS ORDERED: IBUP-1022 PO (09:21)
[2024-03-12] MEDS ORDERED: ACET-683 PO (09:21)
[2024-03-12] MEDS: OXYTOCIN DRIP 30 UNITS in IV 1 EA IV SCH (09:27)
[2024-03-12] MEDS ORDERED: diphenhydrAMINE 50MG/ML VIAL IV PRN (09:30)
[2024-03-12] MEDS ORDERED: fentaNYL 100 MCG/2 ML INJECTION IV PRN (09:30)
[2024-03-12] MEDS ORDERED: NALOXONE INJ 0.4MG/1ML VIAL IV PRN ×2 (09:30)
[2024-03-12] MEDS ORDERED: **NOTE PATIENT COMMENT** MISC XX SCH (09:30)
[2024-03-12] MEDS ORDERED: ONDANSETRON 4MG 2ML VIAL IV PRN (09:30)
[2024-03-12] MEDS ORDERED: METOCLOPRAMIDE INJ 10MG/2ML VIAL As Ordered ONE (10:03)
[2024-03-12] MEDS: METOCLOPRAMIDE INJ 10MG/2ML VIAL IV PRN (10:05)
[2024-03-12] MEDS: ACETAMINOPHEN 500 MG TAB PO SCH (12:00)
[2024-03-12] MEDS: ONDANSETRON 4MG 2ML VIAL IV PRN (14:06)
[2024-03-12] MEDS: SLF 3 ML SYR IV SCH (14:07)
[2024-03-12] MEDS: KETOROLAC 30 MG/ML 1ML VIAL IV SCH (14:37)
[2024-03-12] MEDS: LABETALOL 100MG TAB PO SCH (21:00)
[2024-03-13] VITALS (7 sets, daily range): BP systolic 105–135; BP diastolic 56–75; O2SAT 96–98
[2024-03-13 05:50] LABS: HEMATOCRIT 31.1 % (36.0-47.0); HEMOGLOBIN 10.7 g/dl (12.0-15.5); MEAN CORPUSCULAR HEMOGLOBIN 30.4 pg (27.0-33.0); MEAN CORPUSCULAR HGB CONC 34.4 g/dl (32.0-36.5); MEAN CORPUSCULAR VOLUME 88.4 fl (80.0-96.0); PLATELET COUNT, AUTOMATED 156 10^3/uL (150-450); RED BLOOD COUNT 3.52 10^6/uL (4.00-5.40); WHITE BLOOD COUNT 10.3 10^3/uL (4.0-10.0)
[2024-03-13] MEDS ORDERED: METOCLOPRAMIDE INJ 10MG/2ML VIAL IV PRN (09:30)
[2024-03-13] MEDS: IBUPROFEN 600MG TAB PO SCH (10:04)
[2024-03-13] MEDS: PRENATAL VITAMINS CHEWABLE TABLET PO SCH (10:05)
[2024-03-13] MEDS: LABETALOL 100 MG PO SCH (10:07)
[2024-03-13] MEDS: DOCUSATE SODIUM 100MG CAPSULE PO PRN (21:03)
[2024-03-14 02:00] VITALS: BP 132/73; O2SAT 97
[2024-03-14 06:00] VITALS: BP 140/77; O2SAT 97
[2024-03-14] MEDS ORDERED: MEASLES,MUMPS,RUBELLA VACCINE INJ (MMR-II) SC.IMMUN ONE (09:00)
[2024-03-14 09:27] VITALS: BP 141/72
[2024-03-14 10:00] VITALS: BP 133/64; O2SAT 97
== END 2024-03-14 12:24 | disposition home or self-care (01) | DRG 788 ==
LOC: M LDI 05:16 → M OBS 10:56
PROVIDERS: ADMIT Obstetrics & Gynecology; ATTEND Obstetrics & Gynecology
PROC: 10D00Z1 Extraction of Products of Conception, Low, Open Approach (ICD-10-PCS; principal; 2024-03-12 07:30)
DX: O34.211 Maternal care for low transverse scar from previous cesarean delivery (principal); Z3A.39 39 weeks gestation of pregnancy; O32.6XX0 Maternal care for compound presentation, not applicable or unspecified; Z37.0 Single live birth; Z79.899 Other long term (current) drug therapy

== ENCOUNTER → 2024-09-18 | Outpatient (REF) | payer OTHER, BC ==
[~2024-09-18] MED LIST changes: +ACET-683 PO; +COLA100C5 PO; +OXYC-517 PO
== END ==
LOC: M SFHCWAGY 14:55
PROVIDERS: ATTEND Nurse Practitioner Family
DX: Z12.4 Encounter for screening for malignant neoplasm of cervix (principal); Z11.51 Encounter for screening for human papillomavirus (HPV); R87.615 Unsatisfactory cytologic smear of cervix

== ENCOUNTER → 2025-07-22 | Outpatient (CLI) | payer BC ==
[~2025-07-22] MED LIST changes: -IBUP-1022 PO; +IBUP600T42 PO
[2025-07-22 18:12] LABS: GLUCOSE CHALLENGE TEST 1 HOUR 131 MG/DL (LESS THAN 140)
[2025-07-22 18:18] LABS: PLATELET COUNT, AUTOMATED 221 10^3/uL (150-450)
[2025-07-22 18:41] LABS: HIV 1&2 SCREEN NEGATIVE (NEGATIVE)
[2025-07-22 18:49] LABS: HEPATITIS C VIRUS ABY INDEX < 0.02 INDEX (<0.8)
[2025-07-22 20:40] LABS: Trichomonas vaginalis (AMP) NOT DETECTED (NEGATIVE)
[2025-07-22 21:03] LABS: GC DNA AMPLIFICATION NEGATIVE (NEGATIVE)
== END ==
LOC: M PLALAB 12:19
PROVIDERS: ATTEND Obstetrics & Gynecology
DX: Z33.1 Pregnant state, incidental (principal)

== ENCOUNTER → 2025-09-04 | Outpatient (CLI) | payer BC | LOC: M WHC 07:09 | PROVIDERS: ATTEND Student in an Organized Health Care Education/Training Program | DX: Z34.80 Encounter for supervision of other normal pregnancy, unspecified trimester (principal) ==

== ENCOUNTER → 2025-09-18 | Outpatient (REF) | payer BC | LOC: M SFHCWAGY 15:17 | PROVIDERS: ATTEND Specialist | DX: O10.919 Unspecified pre-existing hypertension complicating pregnancy, unspecified trimester (principal); Z36.85 Encounter for antenatal screening for Streptococcus B ==

== ENCOUNTER 2025-09-27 09:30 | Inpatient (IN) | payer BC ==
[~2025-09-27] VITALS: Ht 160 cm; Wt 81.0 kg
[~2025-09-27 09:30] MED LIST changes: -LABE100T6 PO; +LABE100T91 PO
[2025-09-27] MEDS ORDERED: FAMO20TA PO (09:55)
[2025-10-09] VITALS (8 sets, daily range): BP systolic 119–135; BP diastolic 65–81; TEMP 97.4; O2SAT 96–98
[2025-10-09] MEDS ORDERED: TRANEXAMIC ACID INJection 1,000 MG in NS 100 ML IV PRN (07:55)
[2025-10-09] MEDS ORDERED: METHYLERGONOVINE MALEATE 0.2 MG/ML 1 ML VIAL IM PRN (07:55)
[2025-10-09] MEDS ORDERED: OXYTOCIN DRIP 30 UNITS in IV 1 EA IV PRN (07:55)
[2025-10-09] MEDS ORDERED: OXYTOCIN INJ 10UNITS/ML 1ML VIAL IM PRN (07:55)
[2025-10-09] MEDS ORDERED: CARBOPROST TROMETHAMINE 250 MCG/ML AMP IM PRN (07:55)
[2025-10-09 08:41] LABS: PLATELET COUNT, AUTOMATED 191 10^3/uL (150-450)
[2025-10-09] MEDS: LR 1,000 ML IV SCH (09:05)
[2025-10-09] MEDS: BICITRA 30 ML SOLN UDC PO ONE (09:06)
[2025-10-09] MEDS: ceFAZolin SODIUM 2 GM in DEXTROSE 5% (D5W) ADV/MINI-BAG 50 ML IV ONE (09:06)
[2025-10-09] MEDS ORDERED: MORPHINE PRES-FREE INJ 10 MG/10 ML VIAL As Ordered ONE (09:16)
[2025-10-09] MEDS ORDERED: ACETAMINOPHEN 1000MG/100ML IV BAG As Ordered ONE (09:16)
[2025-10-09] MEDS ORDERED: OXYTOCIN 30UNITS IN 0.9% NaCl 500ML IV BAG IV ONE (09:16)
[2025-10-09] MEDS ORDERED: ONDANSETRON 4MG/2ML VIAL As Ordered ONE (09:17)
[2025-10-09] MEDS ORDERED: dexAMETHasone 4 MG/ML 1 ML VIAL As Ordered ONE (09:17)
[2025-10-09 09:37] LABS: HIV 1&2 SCREEN NEGATIVE (NEGATIVE)
[2025-10-09] MEDS ORDERED: KETOROLAC 30 MG/ML 1 ML VIAL As Ordered ONE (09:43)
[2025-10-09 09:45] LABS: HEPATITIS C VIRUS ABY INDEX < 0.02 INDEX (<0.8)
[2025-10-09] MEDS ORDERED: LR 1,000 ML IV SCH (10:35)
[2025-10-09] MEDS: OXYTOCIN DRIP 30 UNITS in IV 1 EA IV SCH (10:35)
[2025-10-09] MEDS ORDERED: MOM 30 ML SUSPENSION UDC PO PRN (10:35)
[2025-10-09] MEDS ORDERED: ANUSOL HC CREAM 30 GM TOP PRN (10:35)
[2025-10-09] MEDS ORDERED: CALCIUM CARBONATE 500 MG CHEW U/D PO PRN (10:35)
[2025-10-09] MEDS ORDERED: HYDROMORPHONE HCL 0.5 MG/0.5 ML SYRINGE IV PRN (10:40)
[2025-10-09] MEDS ORDERED: diphenhydrAMINE 50 MG/ML VIAL IV PRN ×2 (10:40→19:15)
[2025-10-09] MEDS ORDERED: NALOXONE INJ 0.4 MG/1 ML VIAL IV PRN ×4 (10:40→19:15)
[2025-10-09] MEDS ORDERED: **NOTE PATIENT COMMENT** MISC XX SCH ×2 (10:40→19:15)
[2025-10-09] MEDS ORDERED: IBUP80TA PO (10:43)
[2025-10-09] MEDS ORDERED: COLA100C5 PO (10:43)
[2025-10-09] MEDS ORDERED: MORPHINE 2 MG/ML 1 ML VIAL IV PRN (10:45)
[2025-10-09] MEDS ORDERED: PERCOCET 5MG/325MG TAB PO PRN ×2 (10:45)
[2025-10-09] MEDS ORDERED: PERCOCET PO (10:46)
[2025-10-09] MEDS: OXYTOCIN DRIP 30 UNITS in IV 1 EA IV PRN (11:15)
[2025-10-09] MEDS: ONDANSETRON 4MG/2ML VIAL IV PRN (11:28)
[2025-10-09] MEDS: SLF 3 ML SYR IV SCH ×2 (12:00→19:15)
[2025-10-09] MEDS ORDERED: ONDANSETRON 4MG/2ML VIAL IV PRN (12:34)
[2025-10-09] MEDS: KETOROLAC 30 MG/ML 1 ML VIAL IV SCH (16:17)
[2025-10-09] MEDS: LR 1,000 ML IV ONE (16:20)
[2025-10-09] MEDS: DOCUSATE SODIUM 100 MG CAPSULE PO SCH (20:36)
[2025-10-09] MEDS: LABETALOL 100 MG TAB PO SCH (20:36)
[2025-10-10 02:00] VITALS: BP 139/68; O2SAT 98
[2025-10-10] MEDS: RHOGAM 300MCG (1500IU) INJ IM SCH (05:18)
[2025-10-10 06:00] VITALS: BP 128/68; O2SAT 97
[2025-10-10 06:35] LABS: PLATELET COUNT, AUTOMATED 180 10^3/uL (150-450)
[2025-10-10] MEDS: PRENATAL VITAMINS CHEWABLE TABLET PO SCH (09:00)
[2025-10-10] MEDS: FERROUS SULFATE 325 MG TAB PO SCH (09:00)
[2025-10-10] MEDS: CETIRIZINE 10 MG TAB PO SCH (09:00)
[2025-10-10] MEDS: IBUPROFEN 800 MG TAB PO SCH (12:59)
[2025-10-10] MEDS: ACETAMINOPHEN 500 MG TAB PO PRN (17:58)
[2025-10-10 19:03] VITALS: BP 135/74; O2SAT 97
[2025-10-10 20:26] VITALS: BP 140/74
[2025-10-10 22:10] VITALS: BP 140/74; O2SAT 97
[2025-10-11 02:00] VITALS: BP 148/80; O2SAT 98
[2025-10-11] MEDS: SIMETHICONE 80MG CHEW TAB PO PRN (02:10)
[2025-10-11 06:00] VITALS: BP 136/81; O2SAT 97
[2025-10-11] MEDS: MEASLES,MUMPS,RUBELLA VACCINE INJ (MMR-II) SC.IMMUN ONE (08:29)
== END 2025-10-11 14:00 | disposition home or self-care (01) | DRG 540 ==
LOC: M LDI 10-09 08:06 → EDSTATUS 10-09 09:30 → M OBS 10-09 11:58
PROVIDERS: ADMIT Obstetrics & Gynecology; ATTEND Obstetrics & Gynecology
PROC: 10D00Z1 Extraction of Products of Conception, Low, Open Approach (ICD-10-PCS; principal; 2025-10-09 09:30)
DX: O34.211 Maternal care for low transverse scar from previous cesarean delivery (principal); O10.02 Pre-existing essential hypertension complicating childbirth; Z3A.38 38 weeks gestation of pregnancy; Z37.0 Single live birth

== ENCOUNTER → 2025-10-03 | Outpatient (CLI) | payer BC ==
[~2025-10-03] MED LIST changes: +FAMO20TA PO; +LABE100T6 PO; -LABE100T91 PO
== END ==
LOC: M WHC 13:14
PROVIDERS: ATTEND Advanced Practice Midwife
DX: O10.013 Pre-existing essential hypertension complicating pregnancy, third trimester (principal); Z3A.37 37 weeks gestation of pregnancy